=== PATIENT | male | born 1985 | race Two or more races ===

== ENCOUNTER 2019-04-01 16:26 | Emergency (ER) | payer OTHER ==
[~2019-04-01] VITALS: Ht 185.4 cm; Wt 88.5 kg
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
[2019-04-01] MEDS ORDERED: HYDR-500 PO (16:45)
[2019-04-01] MEDS ORDERED: ESCI10TA PO (16:45)
[2019-04-01] MEDS ORDERED: BUSP15TA3 PO (16:45)
[2019-04-01] MEDS ORDERED: IBUPROFEN 600 MG TABLET PO ONE ×2 (16:57→17:00)
--- NOTE | 2019-04-01 17:00 | NUR ---
PT TAKEN TO CT
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
--- NOTE | 2019-04-01 18:05 | NUR ---
[employer] AT BEDSIDE W/ [place] [id number] AND OFFICER SHANI [id number]
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
[2019-04-01 18:47] VITALS: BP 115/68
--- NOTE | 2019-04-01 18:47 | NUR ---
Patient discharged to home in stable condition. Written and verbal after care instructions given. Patient verbalizes understanding of instruction.
== END 2019-04-01 18:48 | disposition home or self-care (01) ==
LOC: ER 16:26
DX: S02.5XXA Fracture of tooth (traumatic), initial encounter for closed fracture (principal); R51 Headache; F41.9 Anxiety disorder, unspecified; F41.0 Panic disorder [episodic paroxysmal anxiety]; Z79.899 Other long term (current) drug therapy; Y08.89XA Assault by other specified means, initial encounter; Y93.89 Activity, other specified; Y92.89 Other specified places as the place of occurrence of the external cause; Y99.8 Other external cause status
CPT/HCPCS: 70450-TC; 70486-TC